=== PATIENT | female | born 1985 | race Caucasian/White ===

== ENCOUNTER 2023-06-24 12:25 | Outpatient (CLI) | payer OTHER | END 2023-06-24 12:47 | disposition home or self-care (01) | LOC: NST 12:25 | PROVIDERS: ATTEND Obstetrics & Gynecology | DX: Z34.83 Encounter for supervision of other normal pregnancy, third trimester (principal) ==

== ENCOUNTER 2023-06-24 13:15 | Inpatient (IN) | payer OTHER ==
[~2023-06-24] VITALS: Ht 162.6 cm; Wt 74.8 kg
[2023-06-27] MEDS ORDERED: PRENATAL CAPLE1 EAC1 PO (17:14)
== END 2023-06-29 10:36 | disposition home or self-care (01) | DRG 807 ==
LOC: EDUNIT# 13:15 → LDR 06-27 16:54 → OB/GYN 06-27 23:47
PROVIDERS: Obstetrics & Gynecology Maternal & Fetal Medicine; ADMIT Obstetrics & Gynecology; ATTEND Obstetrics & Gynecology
PROC: 10D07Z6 Extraction of Products of Conception, Vacuum, Via Natural or Artificial Opening (ICD-10-PCS; principal; 2023-06-27)
PROC: 0KQM0ZZ Repair Perineum Muscle, Open Approach (ICD-10-PCS; 2023-06-27)
PROC: 0W8NXZZ Division of Female Perineum, External Approach (ICD-10-PCS; 2023-06-27)
PROC: 4A1HXCZ Monitoring of Products of Conception, Cardiac Rate, External Approach (ICD-10-PCS; 2023-06-27)
DX: O70.1 Second degree perineal laceration during delivery (principal); Z37.0 Single live birth; O66.5 Attempted application of vacuum extractor and forceps; Z3A.39 39 weeks gestation of pregnancy; Z20.822 Contact with and (suspected) exposure to COVID-19